=== PATIENT | female | born 1995 | race Caucasian/White ===

== ENCOUNTER 2021-07-01 04:42 | Observation (INO) | payer OTHER ==
[~2021-07-01] VITALS: Ht 157.5 cm; Wt 50.0 kg
[2021-07-01 04:40] VITALS: BP 122/86
[2021-07-01] MEDS ORDERED: IV NORMAL SALINE 1000ML BAG 1,000 ML IV SCH (05:00)
[2021-07-01] MEDS ORDERED: MORPHINE SULFATE 2 MG/ML INJ. IVP PRN (05:00)
--- NOTE | 2021-07-01 05:21 | PDOC1 ---
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 with RLQ pain. The pt states that on Thursday she performed a home test after being a wk late. The pt next day she presented to the [facility] in [place]. When she presented she told them of her cramping. She was advised by them to go to the ER if she began bleeding. Yesterday she was cramping off and on throughout the day. Later that night around 2129 the cramps began to become intense and she started to have a sharp pain on her right side. She presented to ER she was found to have a Hgb 13.6 and quant 335. An u/s was performed revealing the following: * Within the endometrial stripe there is some heterogenous material seen which could be secondary to either some complex fluid such as blood within the area or an abnormal gestational sac with internal debris throughout. * Within the right adnexa there is a masslike structure identified as well as some heterogenous fluid. Differential considerations would include both ectopic with some adjacent blood but other adnexal masses could have this appearance as well. Correlation with hCG is needed given that ectopic is within the differential for this finding Upon transfer to the pt states that her pain is mild. Discussed ddx with the pt. PMH: Denies PSH: Dental Meds: None All: NKDA OBHx: 1 x TSVD (IUGR) Overlocker: LMP: 05/18/21 IUD removed in Apr Menarche 12yo / regular cycles SH: no tob, no EtOH FH: noncontributory Medications: Meds: Current Medications Medications (Trade) Dose Ordered Sig/Mary Route PRN Reason Start Time Stop Time Status Last Admin Dose Admin Sodium Chloride 1,000 ml @ 50 mls/hr Q20H IV 07/01/21 05:00 07/01/21 05:11 Morphine Sulfate (Morphine Sulfate) 2 mg PRN Q2HR PRN IVP SEVERE PAIN 7-10 07/01/21 05:00 07/01/21 05:11 Allergies: Coded Allergies: No Known Drug Allergies (Unverified , 07/01/21) Physical Exam: PE: GENERAL: No apparent distress. Alert and oriented. HEENT: Head normocephalic, atraumatic. NECK: Supple LUNGS: Clear to auscultation. HEART: RRR, S1, S2 present, pulses intact ABDOMEN: Soft, positive bowel sounds. Some mild RLQ pain. EXTREMITIES: No cyanosis or edema. NEUROLOGIC: Normal speech, normal tone PSYCHIATRIC: Normal affect, normal mood. SKIN: No ulceration. Assessment & Plan: A/P 25y with an LMP of 05/18/21 1.) R/o ectopic quant below discretionary zone, although heterogenous material seen in the uterus. DDx would include early , AB, or ectopic. Small mass seen on right. This mass could be ectopic or just functional cyst. Since pain is not bad at this time, will repeat quant in 48hrs as outpt. Ectopic precautions given. 2.) Labs will obtain LFTs (if she needs MTX down the road), CBC and quant repeated 3.) Hgb 13.6 4.) O pos 5.) Will d/c if labs and exam remain nml KHUSHI PECK MD Jul 01, 2021 05:21
[2021-07-01 07:45] VITALS: BP 117/88
[2021-07-01 08:57] LABS: BASO % 1 % (0-3); EOS # 0.1 x10^3/uL (0.0-0.7); EOS % 2 % (0-3); HEMATOCRIT 35.2 % (36.0-47.0); HEMOGLOBIN 11.9 g/dL (12.0-15.5); LYMPH # 2.8 x10^3/uL (1.0-4.8); LYMPH % 39 % (24-48); MEAN CORPUSCULAR HEMOGLOBIN 31 pg (25-35); MEAN CORPUSCULAR HGB CONC 34 g/dL (31-37); MEAN CORPUSCULAR VOLUME 92 fL (79-100); MONO # 0.5 x10^3/uL (0.0-1.1); MONO % 7 % (0-9); NEUT # 3.8 x10^3/uL (1.8-7.7); NEUT % 52 % (31-73); PLATELET COUNT 309 x10^3/uL (140-400); RED BLOOD COUNT 3.83 x10^6/uL (3.50-5.40); RED CELL DISTRIBUTION WIDTH 12.5 % (11.5-14.5); WHITE BLOOD COUNT 7.3 x10^3/uL (4.0-11.0)
[2021-07-01 09:04] LABS: ALBUMIN 3.6 g/dL (3.4-5.0); ALBUMIN/GLOBULIN RATIO 1.2 (1.0-1.7); CALCIUM 8.1 mg/dL (8.5-10.1); CREATININE 0.5 mg/dL (0.6-1.0); GFR 151.6; POTASSIUM 3.3 mmol/L (3.5-5.1); TOTAL BILIRUBIN 0.9 mg/dL (0.2-1.0); TOTAL PROTEIN 6.6 g/dL (6.4-8.2)
[2021-07-01 12:45] VITALS: BP 116/75
[2021-07-01 14:40] VITALS: BP 105/55
== END 2021-07-01 14:50 | disposition home or self-care (01) ==
LOC: INTOOBSV 04:42 → UNDOADMIN 04:42 → 3 SO LND 04:42
PROVIDERS: ADMIT Obstetrics & Gynecology; ATTEND Obstetrics & Gynecology
DX: O00.90 Unspecified ectopic pregnancy without intrauterine pregnancy (principal); O26.891 Other specified pregnancy related conditions, first trimester; R10.31 Right lower quadrant pain; O36.5910 Maternal care for other known or suspected poor fetal growth, first trimester, not applicable or unspecified; Z3A.01 Less than 8 weeks gestation of pregnancy
CPT/HCPCS: 36415; 80053; 84702; 85025; 96361; 96374; G0378; G0379; J2270; J7030

== ENCOUNTER → 2021-07-05 | Outpatient (CLI) | payer OTHER ==
[2021-07-01 14:40] VITALS: BP 105/55
--- NOTE | 2021-07-05 10:34 | RAD ---
Transabdominal and transvaginal sonography of the pelvis-OB ultrasound study less than 14 weeks Clinical indications: . Bleeding. COMPARISON: June 30, 2021. Transabdominal sonography: The uterus is anteverted in position. No intrauterine gestational sac is s een. Therefore, transvaginal sonography will be performed. No adnexal mass or free fluid is apparent. Neither ovary is visualized. Transvaginal sonography: The longitudinal AP and transverse dimensions of the uterus are 9.0 cm and 4 .7 cm and 5.3 cm respectively. The endometrial canal measures 8 mm in thickness and is echogenic. The re is a small fluid collection within the thickened endometrium of the fundus measuring 3.8 mm. If th is is a gestational sac, then this corresponds to a gestational age of 5 weeks 1 day. No pole o r heartbeat is seen. On the previous study, a similar finding was seen here and this area measu red 13 mm. Therefore, it has decreased in size. This is suspicious for a spontaneous . The ri ght ovary measures 3.0 cm and 1.8 cm and 2.5 cm in size. Small collapsed corpus luteum is seen within the right ovary measuring 8 mm. Color Doppler flow is seen within the right ovary. The previously se en adnexal mass adjacent to the right ovary on the previous study is not seen today. Otherwise no adn exal mass is seen. The left ovary measures 3.2 cm and 1.6 cm and 0.9 cm in size and is normal. Color Doppler flow is seen within left ovary. No adnexal masses is seen on the left side. No free fluid is apparent. IMPRESSION: The sonographic findings are suggestive of spontaneous . No intrauterine fetus or heart beat is seen. Previously seen right adnexal mass is not evident today. Correlation with serial quantitative beta-hCG studies is needed however to exclude an ectopic . Electronically signed by: Joshua Hager MD (07/05/2021 10:31 AM) [id number]
== END ==
LOC: US 08:30
PROVIDERS: ATTEND Obstetrics & Gynecology
DX: O00.201 Right ovarian pregnancy without intrauterine pregnancy (principal); R93.89 Abnormal findings on diagnostic imaging of other specified body structures; Z3A.01 Less than 8 weeks gestation of pregnancy
CPT/HCPCS: 76801; 76817

== ENCOUNTER 2021-07-16 13:57 | Observation (INO) | payer OTHER ==
[~2021-07-16] VITALS: Ht 157.5 cm; Wt 51.0 kg
--- NOTE | 2021-07-16 15:50 | PHYS DOC ---
Past Medical History Smoking Status: Never Smoker General Adult EDM: Chief Complaint: PELVIC PAIN HPI: HPI: Patient is a 25 year old patient who is here with right pelvic pain, vaginal bleeding. She has had multiple positive test since the beginning of the month. LMP was at the end of April of this year. This would be her second . She has been seen at [facility] and in this ER, her serial ultrasounds as well as hCG levels. On initial hCG, it was noted to be in the 300s, then subsequently trended down to the 200s. She followed up with Dr. Shook of [facility], as an outpatient, and it was up to 600s. There was suspicion of nonruptured ectopic at that time, she was offered methotrexate, which she declined at the time, she wanted to wait and see if it was going to be a possible viable IUP. She did not follow-up within the last week, when she began to experience heavy bleeding and pain today, she was not able to get in to be seen in the office today. Her initial ultrasound showed a questionable intra uterine sac, but this was gone around the second ultrasound, there was a right ovarian mass/cyst, which was subsequently gone on the subsequent ultrasound as well. There is no evidence of obvious significant free fluid or ruptured ectopic on her previous ultrasound studies. Review of Systems: Review of Systems: Constitutional: Denies fever or chills. [] HENT: Denies nasal congestion or sore throat. [] Respiratory: Denies cough or shortness of breath. [] Cardiovascular: Denies chest pain or edema. [] GI: Right sided pelvic pain. Reports nausea without vomiting. Denies bowel habit changes. : Right-sided pelvic pain, vaginal bleeding. Musculoskeletal: Denies back pain or joint pain. [] Integument: Denies rash. [] Neurologic: Denies headache, focal weakness or sensory changes. [] Psychiatric: Denies depression or anxiety. [] Heart Score: C/O Chest Pain: No Risk Factors: Risk Factors: DM, Current or recent (<one month) smoker, HTN, HLP, family history of CAD, obesity. Risk Scores: Score 0 - 3: 2.5% MACE over next 6 weeks - Discharge Home Score 4 - 6: 20.3% MACE over next 6 weeks - Admit for Clinical Observation Score 7 - 10: 72.7% MACE over next 6 weeks - Early Invasive Strategies Allergies: Allergies: Allergies Coded Allergies Type Severity Reaction Last Updated Verified No Known Drug Allergies 07/01/21 No Physical Exam: PE: Constitutional: Well developed, well nourished, no acute distress, non-toxic appearance. [] HENT: Normocephalic, atraumatic, mucous membranes are moist Eyes: Sclera are clear Neck: Trachea is midline Cardiovascular: Tachycardic, regular, rate in the low 100s, +2 radial and +2 dorsalis pedis pulses bilaterally Lungs & Thorax: Bilateral breath sounds clear to auscultation [] Abdomen: Abdomen is soft, nondistended, very minimal right lower quadrant tenderness/right pelvic tenderness. No guarding or rebound tenderness. Normal bowel sounds. No palpable mass organomegaly. : No external lesions are noted. There is moderate vaginal bleeding. Bleeding is coming from the cervical os. No CMT. No palpable masses or tenderness on bimanual exam. Os is closed. There is no tissue noted. No cervical erythema or purulent discharge Skin: Warm, dry, no erythema, no rash. [] Back: No tenderness, no CVA tenderness. [] Extremities: No tenderness, no cyanosis, no clubbing, ROM intact, no edema. No calf tenderness. Neurologic: Alert and oriented X 3, normal motor function, normal sensory function, no focal deficits noted. [] Psychologic: Affect normal, judgement normal, mood normal. He is pleasant and cooperative EKG: EKG: [] Radiology/Procedures: Radiology/Procedures: IMAGING REPORT Signed PATIENT: MADDIE JACKSONCOUNT: [id number] : 1995 LOCATION: ER AGE: 25 SEX: F EXAM STATUS: REG ER ORD. PHYSICIAN: BIBIANA ZARAGOZA DO REASON: , pain, bleeding PROCEDURE: OB TRANSVAG EXAM: Obstetric sonogram. HISTORY: 25-year-old female presents with pelvic pain. Recent imaging demonstrated findings favoring spontaneous . TECHNIQUE: Transvaginal sonographic imaging of the pelvis was performed. COMPARISON: 07/05/2021 and 06/30/2021. FINDINGS: The uterus measures 8 x 5 x 4 cm. The endometrial stripe measures 3.7 mm in thickness. There is no intrauterine gestational sac. There is a moderate to large amount of pelvic free fluid containing debris. The ovaries are normal in size and demonstrate normal blood flow. There is a masslike structure within the right adnexa adjacent to the right ovary, a component of which is likely due to bowel given evidence of slight peristalsis on cine images. There is a portion of this structure which does not peristalse. IMPRESSION: 1. Moderate to large amount of free fluid containing debris within the pelvis, new compared to the prior study and possibly containing blood products. Given the presence of a right adnexal structure which is not clearly associated with bowel, the possibility of a ruptured ectopic is not excluded on this exam. Correlation with serial beta hCG levels and obstetrics consultation is recommended. 2. No intrauterine gestation. 3. Normal-appearing ovaries. Findings were discussed with Dr. Zaragoza at 1515 hours on 07/16/2021. Electronically signed by: Alma Zepeda MD (07/16/2021 5:17 PM) [id number] DICTATED and SIGNED BY: ALMA ZEPEDA MD DATE: 07/16/21 [id number] 0 Course & Med Decision Making: Course & Med Decision Making Pertinent Labs and Imaging studies reviewed. (See chart for details) I discussed the findings, differential diagnosis and plan of care with the patient. Ultrasound shows significant pelvic free fluid. There is no intrauterine . hCG has increased significantly from previous, up to over 1800 today. Clinically, this is consistent with ruptured ectopic . I spoke with Dr. Shook of [facility], who agrees to accept the patient for admission here to the hospital, he will take the patient to the OR tonight. The patient is resting comfortably, she reports improvement of pain after being given IV fentanyl. IV Zofran ordered for nausea. She has been kept n.p.o. here in the ER, she last ate around 1 PM type and screen is ordered, she has had 1 previously Covid swab is ordered as per request from the washhouse worker and Dr. Shook. The patient wishes for her emergency contact to be her mother, Jagruti Inman. Phone number is [phone]. Dragon Disclaimer: Dragon Disclaimer: This electronic medical record was generated, in whole or in part, using a voice recognition dictation system. Departure Departure Impression: Primary Impression: Ruptured ectopic Disposition: 09 ADMITTED INPATIENT (Dr. Shook--OBGYN) Condition: GUARDED Referrals: KEHINDE LINARES PA-C (PCP) BIBIANA ZARAGOZA DO Jul 16, 2021 15:50
[2021-07-16 16:29] LABS: BILIRUBIN,URINE NEGATIVE (NEG); CLARITY,URINE CLEAR; COLOR,URINE YELLOW; NITRITE,URINE NEGATIVE (NEG); PH,URINE 6.5 (<5.0-8.0); PROTEIN,URINE NEGATIVE (NEG-TRACE); UROBILINOGEN,URINE 0.2 mg/dL (0.2 mg/dL)
[2021-07-16 16:36] LABS: BACTERIA,URINE 0 /HPF (0-FEW); RBC,URINE OCC /HPF (0-2); WBC,URINE OCC /HPF (0-4)
[2021-07-16 16:42] LABS: BASO # 0.1 x10^3/uL (0.0-0.2); BASO % 1 % (0-3); EOS # 0.2 x10^3/uL (0.0-0.7); EOS % 2 % (0-3); HEMATOCRIT 35.7 % (36.0-47.0); HEMOGLOBIN 12.1 g/dL (12.0-15.5); LYMPH # 2.8 x10^3/uL (1.0-4.8); LYMPH % 32 % (24-48); MEAN CORPUSCULAR HEMOGLOBIN 31 pg (25-35); MEAN CORPUSCULAR HGB CONC 34 g/dL (31-37); MEAN CORPUSCULAR VOLUME 92 fL (79-100); MONO # 0.5 x10^3/uL (0.0-1.1); MONO % 6 % (0-9); NEUT # 5.2 x10^3/uL (1.8-7.7); NEUT % 60 % (31-73); PLATELET COUNT 347 x10^3/uL (140-400); RED BLOOD COUNT 3.89 x10^6/uL (3.50-5.40); RED CELL DISTRIBUTION WIDTH 12.8 % (11.5-14.5); WHITE BLOOD COUNT 8.7 x10^3/uL (4.0-11.0)
[2021-07-16 16:45] LABS: CALCIUM 8.8 mg/dL (8.5-10.1); CREATININE 0.4 mg/dL (0.6-1.0); GFR 196.1; POTASSIUM 3.3 mmol/L (3.5-5.1)
[2021-07-16] MEDS ORDERED: fentaNYL PF VIAL 100 MCG/2 ML VIAL IVP ONE (17:15)
--- NOTE | 2021-07-16 17:20 | RAD ---
EXAM: Obstetric sonogram. HISTORY: 25-year-old female presents with pelvic pain. Recent imaging demonstrated findings favoring spontaneous . TECHNIQUE: Transvaginal sonographic imaging of the pelvis was performed. COMPARISON: 07/05/2021 and 06/30/2021. FINDINGS: The uterus measures 8 x 5 x 4 cm. The endometrial stripe measures 3.7 mm in thickness. Ther e is no intrauterine gestational sac. There is a moderate to large amount of pelvic free fluid contai curt debris. The ovaries are normal in size and demonstrate normal blood flow. There is a masslike st ructure within the right adnexa adjacent to the right ovary, a component of which is likely due to tenisha wel given evidence of slight peristalsis on cine images. There is a portion of this structure which d oes not peristalse. IMPRESSION: 1. Moderate to large amount of free fluid containing debris within the pelvis, new compared to the pr ior study and possibly containing blood products. Given the presence of a right adnexal structure whi ch is not clearly associated with bowel, the possibility of a ruptured ectopic is not exclu ded on this exam. Correlation with serial beta hCG levels and obstetrics consultation is recommended. 2. No intrauterine gestation. 3. Normal-appearing ovaries. Findings were discussed with Dr. Tuttle at 1515 hours on 07/16/2021. Electronically signed by: Alma Manrique MD (07/16/2021 5:17 PM) [id number]
[2021-07-16] MEDS ORDERED: IV NORMAL SALINE 1000ML BAG 1,000 ML IV ONE (18:00)
[2021-07-16] MEDS ORDERED: ONDANSETRON PF 4 MG/2 ML VIAL. IVP ONE (18:30)
--- NOTE | 2021-07-16 19:15 | PDOC1 ---
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 The pt was first seen at [facility] on 06/30/21 with RLQ pain. At the time she had a quant of 335. She was transferred to [facility] for concerns of an ectopic. On transfer her quant decreased to 226. But a repeat quant on 07/02/21 was 416. A subsequent quant on 07/04 was 582. An u/s was repeated on 07/05 revealed findings suggestive of a spontaneous . No intrauterine fetus or heart beat was seen. The previously seen right adnexal mass was no l onger present. The pt was called with the quant of 637. Discussed MTX vs serial quants. The pt never called back with a decision. The pt presented to the ER with increased pain and VB. Her quant today was 1851. The u/s in the ER revealed the followin. Moderate to large amount of free fluid containing debris within the pelvis, new compared to the prior study and possibly containing blood products. Given the presence of a right adnexal structure which is not clearly associated with bowel, the possibility of a ruptured ectopic is not excluded on this exam. Correlation with serial beta hCG levels and obstetrics consultation is recommended. 2. No intrauterine gestation. 3. Normal-appearing ovaries. 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: LMP: 05/18/21 IUD removed in Apr Menarche 12yo / regular cycles SH: no tob, no EtOH FH: noncontributory Medications: Meds: Current Medications Medications (Trade) Dose Ordered Sig/Mary Route PRN Reason Start Time Stop Time Status Last Admin Dose Admin Fentanyl Citrate (Fentanyl 2ml Vial) 50 mcg 1X ONCE IVP 07/16/21 17:15 07/16/21 17:16 DC 07/16/21 18:03 Sodium Chloride 1,000 ml @ 1,000 mls/hr 1X ONCE IV 07/16/21 18:00 07/16/21 18:59 DC 07/16/21 18:02 Ondansetron HCl (Zofran) 4 mg 1X ONCE IVP 07/16/21 18:30 07/16/21 18:31 DC 07/16/21 19:05 Allergies: Coded Allergies: No Known Drug Allergies (Unverified , 07/01/21) Physical Exam: Vital Signs: Vital Signs Date Time Temp Pulse Resp B/P (MAP) Pulse Ox O2 Delivery O2 Flow Rate FiO2 07/16/21 15:40 99.5 86 12 145/90 (108) Room Air 99.5 PE: GENERAL: No apparent distress. Alert and oriented. HEENT: Head normocephalic, atraumatic. NECK: Supple LUNGS: Clear to auscultation. HEART: RRR, S1, S2 present, pulses intact ABDOMEN: Soft, positive bowel sounds. EXTREMITIES: No cyanosis or edema. NEUROLOGIC: Normal speech, normal tone PSYCHIATRIC: Normal affect, normal mood. SKIN: No ulceration. Labs: Laboratory Tests Test 07/16/21 15:46 07/16/21 16:27 Urine Collection Type Unknown Urine Color Yellow Urine Clarity Clear Urine pH 6.5 (<5.0-8.0) Urine Specific [place] 1.015 (1.000-1.030) Urine Protein Negative mg/dL (NEG-TRACE) Urine Glucose (UA) Negative mg/dL (NEG) Urine Ketones (Stick) 40 mg/dL (NEG) Urine Blood Large (NEG) Urine Nitrite Negative (NEG) Urine Bilirubin Negative (NEG) Urine Urobilinogen Dipstick 0.2 mg/dL (0.2 mg/dL) Urine Leukocyte Esterase Negative (NEG) Urine RBC Occ /HPF (0-2) Urine WBC Occ /HPF (0-4) Urine Squamous Epithelial Cells Few /LPF Urine Bacteria 0 /HPF (0-FEW) White Blood Count 8.7 x10^3/uL (4.0-11.0) Red Blood Count 3.89 x10^6/uL (3.50-5.40) Hemoglobin 12.1 g/dL (12.0-15.5) Hematocrit 35.7 % (36.0-47.0) L Mean Corpuscular Volume 92 fL (79-100) Mean Corpuscular Hemoglobin 31 pg (25-35) Mean Corpuscular Hemoglobin Concent 34 g/dL (31-37) Red Cell Distribution Width 12.8 % (11.5-14.5) Platelet Count 347 x10^3/uL (140-400) Neutrophils (%) (Auto) 60 % (31-73) Lymphocytes (%) (Auto) 32 % (24-48) Monocytes (%) (Auto) 6 % (0-9) Eosinophils (%) (Auto) 2 % (0-3) Basophils (%) (Auto) 1 % (0-3) Neutrophils # (Auto) 5.2 x10^3/uL (1.8-7.7) Lymphocytes # (Auto) 2.8 x10^3/uL (1.0-4.8) Monocytes # (Auto) 0.5 x10^3/uL (0.0-1.1) Eosinophils # (Auto) 0.2 x10^3/uL (0.0-0.7) Basophils # (Auto) 0.1 x10^3/uL (0.0-0.2) Maternal Serum HCG Beta Subunit 1851 mIU/mL (0-5) H Sodium Level 139 mmol/L (136-145) Potassium Level 3.3 mmol/L (3.5-5.1) L Chloride Level 102 mmol/L (98-107) Carbon Dioxide Level 28 mmol/L (21-32) Anion Gap 9 (6-14) Blood Urea Nitrogen 3 mg/dL (7-20) L Creatinine 0.4 mg/dL (0.6-1.0) L Estimated GFR (Cockcroft-Gault) 196.1 Glucose Level 89 mg/dL (70-99) Calcium Level 8.8 mg/dL (8.5-10.1) Laboratory Tests 07/16/21 16:27 Laboratory Tests 07/16/21 16:27 Laboratory Tests 07/16/21 16:27 Assessment & Plan: A/P 25y with an LMP of 05/18/21 1.) Ruptured right ectopic OR contacted 2.) Hgb 13.6 -> 12.1 3.) KHUSHI Li MD Jul 16, 2021 19:15
[2021-07-16] MEDS ORDERED: ROCURONIUM 50 MG/5 ML VIAL. ONE (19:54)
[2021-07-16] MEDS ORDERED: fentaNYL PF VIAL 100 MCG/2 ML VIAL ONE ×2 (19:54→22:04)
[2021-07-16] MEDS ORDERED: PROPOFOL 10 MG/ML (20ML) VIAL. IV ONE (20:45)
[2021-07-16] MEDS ORDERED: SEVOFLURANE 61 TO 120 MINUTES. IH ONE (20:45)
[2021-07-16] MEDS ORDERED: LIDOCAINE 2% PF 5 ML VIAL. ONE (20:45)
[2021-07-16] MEDS ORDERED: ePHEDrine PF IN SALINE 50 MG/10 ML SYRINGE. IV ONE (20:46)
[2021-07-16] MEDS ORDERED: DEXAMETHASONE SOD PHOS 4 MG/ML VIAL ONE (20:46)
[2021-07-16] MEDS ORDERED: ONDANSETRON PF 4 MG/2 ML VIAL. ONE (20:46)
[2021-07-16] MEDS ORDERED: PROCHLORPERAZINE 10 MG/2 ML VIAL. IVP PRN ×2 (21:00→22:15)
[2021-07-16] MEDS ORDERED: MORPHINE SULFATE 2 MG/ML INJ. IVP PRN ×2 (21:00→22:15)
[2021-07-16] MEDS ORDERED: fentaNYL PF VIAL 100 MCG/2 ML VIAL IVP PRN ×3 (21:00→22:15)
[2021-07-16] MEDS ORDERED: IV RINGERS,LACTATED 1000ML 1,000 ML IV SCH (21:00)
[2021-07-16] MEDS ORDERED: HYDROmorphone 2 MG/ML VIAL IVP PRN (21:00)
[2021-07-16] MEDS ORDERED: PHENYLEPHRINE 10 MG/ML VIAL. ONE (21:01)
[2021-07-16] MEDS ORDERED: NEOSTIGMINE METHYLSULFATE 5 MG/5 ML SYRINGE. ONE (21:41)
[2021-07-16] MEDS ORDERED: GLYCOPYRROLATE 1 MG/5 ML VIAL. ONE (21:41)
[2021-07-16] MEDS ORDERED: KETOROLAC 30 MG/ML VIAL. ONE (21:49)
--- NOTE | 2021-07-16 21:57 | PDOC4 ---
OPERATIVE NOTE: PreOp Dx: Rupture right ectopic PostOp Dx: same Procedure: L/S right salpingectomy Surgeon: Lizzy Peck Anesthesia: GETA EBL: 200 cc Fluids: 1500 cc Findings: right ruptured ectopic Complications: None KHUSHI PECK MD Jul 16, 2021 21:57
[2021-07-16] MEDS ORDERED: KETOROLAC 30 MG/ML VIAL. INJ PRN (22:00)
[2021-07-16] MEDS ORDERED: MORPHINE SULFATE 2 MG/ML INJ. IV PRN ×2 (22:00)
[2021-07-16] MEDS ORDERED: diphenhydrAMINE HCL 25 MG CAPSULE PO PRN (22:00)
[2021-07-16] MEDS ORDERED: diphenhydrAMINE 50 MG/ML VIAL IV PRN (22:00)
[2021-07-16] MEDS ORDERED: NALOXONE 0.4 MG/ML VIAL. IV PRN (22:00)
[2021-07-16] MEDS ORDERED: DEXTROSE 50% 25 GM / 50ML DISP.SYRIN. IV PRN (22:00)
[2021-07-16] MEDS ORDERED: IBUPROFEN 200 MG TABLET. PO PRN (22:00)
[2021-07-16] MEDS ORDERED: 0.9 % SODIUM CHLORIDE 10 ML DISP.SYRIN. IV PRN (22:00)
[2021-07-16] MEDS ORDERED: IV NORMAL SALINE 1000ML BAG 1,000 ML IV SCH (22:00)
[2021-07-16] MEDS ORDERED: oxyCODONE/APAP 5/325 1 TAB TABLET PO PRN (22:00)
[2021-07-16] MEDS ORDERED: MORPHINE SULFATE 4 MG/ML INJ. IVP PRN ×2 (22:00)
[2021-07-16] MEDS: fentaNYL PF VIAL 100 MCG/2 ML VIAL IVP PRN ×2 (22:05→22:14)
[2021-07-16 22:45] VITALS: BP 106/62
[2021-07-16 22:55] VITALS: BP 102/65
[2021-07-16] MEDS ORDERED: ONDANSETRON PF 4 MG/2 ML VIAL. IVP PRN (23:00)
--- NOTE | 2021-07-16 23:02 | OP ---
DATE OF SURGERY: 07/16/2021 PREOPERATIVE DIAGNOSIS: Ruptured right ectopic . POSTOPERATIVE DIAGNOSIS: Ruptured right ectopic . PROCEDURE: Laparoscopic right salpingectomy and ectopic removal. SURGEON: Horacio Shook MD ANESTHESIA: General endotracheal intubation. ESTIMATED BLOOD LOSS: 200 mL. FLUIDS: 1500 mL. FINDINGS: Right ruptured ectopic . COMPLICATIONS: None. DESCRIPTION OF PROCEDURE: The patient was taken to the operating room where general endotracheal intubation was obtained without difficulty. The patient was prepped and draped in normal sterile fashion. A sponge stick was placed in the patient's vagina to manipulate the uterus. Attention was then turned to the abdomen where a 5 mm skin incision was made in the infraumbilical fold. A 5 mm trocar was then placed directly into the abdomen. Intra-abdominal placement was confirmed with laparoscope. At that point, the abdomen was insufflated to 15 mmHg. Visualization of the pelvis revealed approximately 200 mL of blood in the pelvis. A second trocar was then placed on the left approximately two-thirds between the ischial spine and the umbilicus by first placing a 5 mm skin incision and then placing a 5 mm trocar under direct visualization of the laparoscope. At that point, the suction sas programmer analyst was used to clear most of the blood out of the pelvis. At that point, a third trocar was then put on the right approximately two-thirds between the ischial spine and the umbilicus, first by making a 5 mm skin incision and then placing the 5 mm trocar under direct visualization of laparoscope. The ectopic was then visualized and grasped. This portion of the tube was then with the Harmonic scalpel until the tube containing the ectopic was free of the ovary and the uterus. Once the ectopic was , it was placed in the anterior cul-de-sac. At that point, the 5 mm trocar and the umbilicus was removed. The 5 mm skin incision was extended 10 mm for a 10 mm trocar to be placed. Once this was done, a BioCatch bag was then placed through this opening and opened and the ectopic was placed inside the laparoscopic bag, which was closed and brought through the 10 mm skin incision. At that point, the pelvis was copiously irrigated and cleared of all clots and debris. Good hemostasis was noted. At that point, the laparoscopic instruments were removed. The abdomen was desufflated. The 10 mm fascial incision was then closed with 0 Vicryl in a running fashion. The skin was then closed with a 3-0 Monocryl in a subcuticular manner. Sponges, laps and needles were correct x 2. The patient was taken to the recovery room in stable condition. JACOB/BLAKE DR: Marlys TID: [id number]
[2021-07-16 23:10] VITALS: BP 116/66
[2021-07-16] MEDS: IV DEXTROSE 5 %-0.45 % NACL 1,000 ML IV SCH (23:11)
[2021-07-16 23:25] VITALS: BP 116/61
[2021-07-17] VITALS (7 sets, daily range): BP systolic 102–125; BP diastolic 58–74
[2021-07-17] MEDS: oxyCODONE/APAP 5/325 1 TAB TABLET PO PRN ×2 (00:07→09:13)
[2021-07-17] MEDS: IV DEXTROSE 5 %-0.45 % NACL 1,000 ML IV SCH (08:00)
[2021-07-17 08:16] LABS: BASO % 0 % (0-3); EOS % 0 % (0-3); HEMATOCRIT 34.6 % (36.0-47.0); HEMOGLOBIN 11.5 g/dL (12.0-15.5); LYMPH # 1.3 x10^3/uL (1.0-4.8); LYMPH % 15 % (24-48); MEAN CORPUSCULAR HEMOGLOBIN 31 pg (25-35); MEAN CORPUSCULAR HGB CONC 33 g/dL (31-37); MEAN CORPUSCULAR VOLUME 93 fL (79-100); MONO # 0.4 x10^3/uL (0.0-1.1); MONO % 5 % (0-9); NEUT # 7.1 x10^3/uL (1.8-7.7); NEUT % 80 % (31-73); PLATELET COUNT 330 x10^3/uL (140-400); RED BLOOD COUNT 3.73 x10^6/uL (3.50-5.40); RED CELL DISTRIBUTION WIDTH 12.7 % (11.5-14.5); WHITE BLOOD COUNT 8.9 x10^3/uL (4.0-11.0)
--- NOTE | 2021-07-17 08:52 | PDOC ---
ASSOCIATE PRINCIPAL PROGRESS NOTE Date of Service: DATE: 07/17/21 TIME: 08:51 Subjective: Pt with good pain control. Mari PO. Voiding. Objective: Vital Signs: Vital Signs Date Time Temp Pulse Resp B/P (MAP) Pulse Ox O2 Delivery O2 Flow Rate FiO2 07/16/21 15:40 99.5 86 12 145/90 (108) Room Air 99.5 07/16/21 21:54 96 6 Vital Signs Date Time Temp Pulse Resp B/P (MAP) Pulse Ox O2 Delivery O2 Flow Rate FiO2 07/17/21 03:00 98.3 115 18 103/58 (73) 98 Room Air 98.3 07/16/21 22:14 6.0 Labs: Laboratory Tests Test 07/16/21 15:46 07/16/21 16:27 07/16/21 18:58 07/16/21 19:35 Urine Collection Type Unknown Urine Color Yellow Urine Clarity Clear Urine pH 6.5 (<5.0-8.0) Urine Specific [place] 1.015 (1.000-1.030) Urine Protein Negative mg/dL (NEG-TRACE) Urine Glucose (UA) Negative mg/dL (NEG) Urine Ketones (Stick) 40 mg/dL (NEG) Urine Blood Large (NEG) Urine Nitrite Negative (NEG) Urine Bilirubin Negative (NEG) Urine Urobilinogen Dipstick 0.2 mg/dL (0.2 mg/dL) Urine Leukocyte Esterase Negative (NEG) Urine RBC Occ /HPF (0-2) Urine WBC Occ /HPF (0-4) Urine Squamous Epithelial Cells Few /LPF Urine Bacteria 0 /HPF (0-FEW) White Blood Count 8.7 x10^3/uL (4.0-11.0) Red Blood Count 3.89 x10^6/uL (3.50-5.40) Hemoglobin 12.1 g/dL (12.0-15.5) Hematocrit 35.7 % (36.0-47.0) L Mean Corpuscular Volume 92 fL (79-100) Mean Corpuscular Hemoglobin 31 pg (25-35) Mean Corpuscular Hemoglobin Concent 34 g/dL (31-37) Red Cell Distribution Width 12.8 % (11.5-14.5) Platelet Count 347 x10^3/uL (140-400) Neutrophils (%) (Auto) 60 % (31-73) Lymphocytes (%) (Auto) 32 % (24-48) Monocytes (%) (Auto) 6 % (0-9) Eosinophils (%) (Auto) 2 % (0-3) Basophils (%) (Auto) 1 % (0-3) Neutrophils # (Auto) 5.2 x10^3/uL (1.8-7.7) Lymphocytes # (Auto) 2.8 x10^3/uL (1.0-4.8) Monocytes # (Auto) 0.5 x10^3/uL (0.0-1.1) Eosinophils # (Auto) 0.2 x10^3/uL (0.0-0.7) Basophils # (Auto) 0.1 x10^3/uL (0.0-0.2) Maternal Serum HCG Beta Subunit 1851 mIU/mL (0-5) H Sodium Level 139 mmol/L (136-145) Potassium Level 3.3 mmol/L (3.5-5.1) L Chloride Level 102 mmol/L (98-107) Carbon Dioxide Level 28 mmol/L (21-32) Anion Gap 9 (6-14) Blood Urea Nitrogen 3 mg/dL (7-20) L Creatinine 0.4 mg/dL (0.6-1.0) L Estimated GFR (Cockcroft-Gault) 196.1 Glucose Level 89 mg/dL (70-99) Calcium Level 8.8 mg/dL (8.5-10.1) SARS-CoV-2 Antigen (Rapid) Negative (NEGATIVE) SARS-CoV-2 RNA (BRITNEY) Negative (Negative) Test 07/17/21 07:20 White Blood Count 8.9 x10^3/uL (4.0-11.0) Red Blood Count 3.73 x10^6/uL (3.50-5.40) Hemoglobin 11.5 g/dL (12.0-15.5) L Hematocrit 34.6 % (36.0-47.0) L Mean Corpuscular Volume 93 fL (79-100) Mean Corpuscular Hemoglobin 31 pg (25-35) Mean Corpuscular Hemoglobin Concent 33 g/dL (31-37) Red Cell Distribution Width 12.7 % (11.5-14.5) Platelet Count 330 x10^3/uL (140-400) Neutrophils (%) (Auto) 80 % (31-73) H Lymphocytes (%) (Auto) 15 % (24-48) L Monocytes (%) (Auto) 5 % (0-9) Eosinophils (%) (Auto) 0 % (0-3) Basophils (%) (Auto) 0 % (0-3) Neutrophils # (Auto) 7.1 x10^3/uL (1.8-7.7) Lymphocytes # (Auto) 1.3 x10^3/uL (1.0-4.8) Monocytes # (Auto) 0.4 x10^3/uL (0.0-1.1) Eosinophils # (Auto) 0.0 x10^3/uL (0.0-0.7) Basophils # (Auto) 0.0 x10^3/uL (0.0-0.2) Laboratory Tests 07/16/21 16:27 07/17/21 07:20 Laboratory Tests 07/16/21 16:27 Laboratory Tests 07/16/21 16:27 07/17/21 07:20 Physical Exam: GENERAL: No apparent distress. Alert and oriented. HEENT: Head normocephalic, atraumatic. NECK: Supple LUNGS: Clear to auscultation. HEART: RRR, S1, S2 present, pulses intact ABDOMEN: Soft, positive bowel sounds. EXTREMITIES: No cyanosis or edema. NEUROLOGIC: Normal speech, normal tone PSYCHIATRIC: Normal affect, normal mood. SKIN: No ulceration. Inc: dressing dry Assessment & Plan: A/P 25y POD #1 s/p L/S right salpingectomy for ruptured ectopic 1.) PO doing well 2.) Hgb 12.1 -> 11.5 3.) D/c home later this afternoon KHUSHI PECK MD Jul 17, 2021 08:52
[2021-07-17] MEDS ORDERED: DOCUSATE SODIUM 100 MG CAPSULE. PO SCH (09:00)
[2021-07-17] MEDS ORDERED: OXYC1TAB15 PO (09:56)
[2021-07-17] MEDS ORDERED: DOCU-109 PO (09:56)
[2021-07-17] MEDS ORDERED: IBUP-1060 PO (09:56)
[2021-07-17 16:10] LABS: GC PROBE Negative (Negative)
--- NOTE | 2021-07-18 18:15 | PATHOLOGY ---
[facility] Accession Number: [id number] . 01 Material submitted: . fallopian tube - RIGHT FALLOPIAN TUBE AND ECTOPIC . Modifiers: right . 01 Clinical history: . ECTOPIC LAPARSCOPIC TBD . 02 Diagnosis: Fallopian tube, laparoscopic right salpingectomy: - Ectopic tubal . - Hematosalpinx. (JPM:jose elias; 07/18/2021) MBR 07/18/2021 1537 Local . 02 Comment: There is no evidence of rupture in the sections examined. (JPM:jose elias; 07/18/2021) . 02 Electronically signed: . Sánchez Tran MD, Pathologist NPI- [id number] . 01 Gross description: . Received in formalin labeled "Rosario Freeman, right fallopian tube and ectopic " is a red-purple fimbriated fallopian tube measuring 7.3 cm in length and ranging from 1.5-2.5 cm in diameter. The specimen is received previously opened/fragmented near the distal aspect. The proximal to mid fallopian tube displays a dilated area measuring 4.2 cm in length and 2.5 cm in diameter, which is grossly intact. This area is sectioned to reveal a hemorrhagic lumen without grossly identifiable chorionic villi/ tissue. The remaining fallopian tube is sectioned to reveal a grossly unremarkable lumen. The container displays a separate aggregate of red-brown hemorrhagic material measuring 2.3 cm in greatest dimension. The specimen is submitted entirely as follows: A1 proximal fallopian tube A2-A9 mid fallopian tube A10 distal fallopian tube/fimbriated end A11 separate hemorrhage (SK; 07/17/2021) SYC/SYC 07/17/2021 1942 Local . 02 Pathologist provided ICD-10: O00.90, N83.6 . 02 CPT . 726958 Specimen Comment: A courtesy copy of this report has been sent to [phone] Specimen Comment: Report sent to Performed at: [address], [place] [id number] MD Jimenez Yanez MD Phone: [phone] Performed at: 02 [facility] [address] [place] [id number] MD Sánchez Trna MD Phone: [phone]
== END 2021-07-17 16:12 | disposition home or self-care (01) ==
LOC: ER 13:57 → 3 NORTH 18:07
PROVIDERS: ADMIT Obstetrics & Gynecology; ATTEND Obstetrics & Gynecology
DX: O26.891 Other specified pregnancy related conditions, first trimester (principal); Z20.822 Contact with and (suspected) exposure to COVID-19; R10.2 Pelvic and perineal pain; R10.31 Right lower quadrant pain; O00.101 Right tubal pregnancy without intrauterine pregnancy; O36.5910 Maternal care for other known or suspected poor fetal growth, first trimester, not applicable or unspecified; Z3A.01 Less than 8 weeks gestation of pregnancy
CPT/HCPCS: 36415; 59151; 76817; 80048; 81001; 84702; 85025; 86850; 86900; 86901; 87426; 87491; 87591; 96374; 96375; 96376; 99284; A4364; A4930; A6219; G0378; J1100; J2370; J2405; J2704; J2710; J3010; J3490; J7030; J7042; Q0111; U0003; U0005; A4452; A4657; G0379; J1885